=== PATIENT | male | born 1995 | race Two or more races ===

== ENCOUNTER 2020-09-06 08:13 | Emergency (ER) | payer MEDICAID, OTHER ==
[~2020-09-06] VITALS: Ht 170.2 cm; Wt 72.6 kg
[2020-09-06 08:42] VITALS: BP 106/79
[2020-09-06] MEDS ORDERED: ACETAMINOPHEN 500 MG TAB PO ONE (09:30)
== END 2020-09-06 09:54 | disposition home or self-care (01) ==
LOC: ER 08:13
DX: R51.9 Headache, unspecified (principal); T50.Z95A Adverse effect of other vaccines and biological substances, initial encounter; F17.210 Nicotine dependence, cigarettes, uncomplicated; Y92.89 Other specified places as the place of occurrence of the external cause